=== PATIENT | male | born 1980 | race Caucasian/White ===

== ENCOUNTER 2018-05-20 14:57 | Emergency (ER) | payer MEDICAID ==
[~2018-05-20] VITALS: Ht 165.1 cm; Wt 66.0 kg
[2018-05-20] MEDS ORDERED: TETANUS, DIPHTHERIA, PERTUSSIS VAC/PF 0.5ML (>7YR OLD) IM ONE (17:00)
[2018-05-20] MEDS ORDERED: OXYCODONE HCL/ACETAMINOPHEN 5/325MG TABLET PO ONE (17:00)
[2018-05-20] MEDS ORDERED: LIDOCAINE HCL/PF 1% 10 MG/ML 5ML VIAL IJ ONE (17:00)
[2018-05-20] MEDS ORDERED: IBUPROFEN 800MG TABLET PO ONE (17:00)
[2018-05-20 18:05] VITALS: BP 125/80
== END 2018-05-20 19:06 | disposition home or self-care (01) ==
LOC: ER 15:10
DX: S81.811A Laceration without foreign body, right lower leg, initial encounter (principal); S40.022A Contusion of left upper arm, initial encounter; M25.512 Pain in left shoulder; M25.511 Pain in right shoulder; M25.561 Pain in right knee; F17.210 Nicotine dependence, cigarettes, uncomplicated; F12.10 Cannabis abuse, uncomplicated; F15.10 Other stimulant abuse, uncomplicated; Y08.02XA Assault by strike by baseball bat, initial encounter; Y93.89 Activity, other specified; Y92.89 Other specified places as the place of occurrence of the external cause
CPT/HCPCS: 12001; 73030; 73080; 73110; 73562; 73590; 90471; 90715; 99283; J3490

== ENCOUNTER 2018-11-01 23:43 | Inpatient (IN) | payer MEDICAID ==
[~2018-11-01] VITALS: Ht 165.1 cm; Wt 70.3 kg
[2018-11-02] MEDS ORDERED: SODIUM CHLORIDE 0.9% 1,000 ML IV ONE (00:28)
[2018-11-02 01:01] LABS: BASOPHILS % 0.5 % (0.0-2.0); EOSINOPHILS % 0.8 % (0.0-5.0); HEMATOCRIT. 43.2 % (42.0-52.0); HEMOGLOBIN. 14.9 g/dL (14.0-18.0); LYMPHOCYTES % 14.1 % (20.0-50.0); MEAN CORPUSCULAR HEMOGLOBIN 30.3 pg (28.0-32.0); MEAN CORPUSCULAR VOLUME 87.9 fL (80.0-94.0); MEAN PLATELET VOLUME 7.3 fl (7.4-10.4); MONOCYTES % 9.6 % (2.0-8.0); PLATELET 309 x1000/uL (130-400); RED BLOOD CELL COUNT 4.91 mill/uL (4.7-6.1); RED CELL DISTRIBUTION WIDTH 13.2 % (11.6-14.6)
[2018-11-02 01:07] LABS: CHLORIDE 99 mEq/L (98-107)
[2018-11-02 01:11] LABS: PROTHROMBIN TIME 9.9 sec (9.6-11.0)
[2018-11-02 01:13] LABS: ETHANOL BLOOD < 10 mg/dL
[2018-11-02 07:09] LABS: CLARITY URINE CLEAR (CLEAR); COLOR URINE YELLOW (YELLOW); KETONES URINE TRACE (NEGATIVE); LEUKOCYTE ESTERASE URINE NEGATIVE (NEGATIVE); NITRITE URINE NEGATIVE (NEGATIVE); OCCULT BLOOD URINE NEGATIVE (NEGATIVE); PH URINE 5.5 (4.5-8.0); PROTEIN URINE NEGATIVE (NEGATIVE); SPECIFIC GRAVITY URINE 1.024 (1.005-1.030)
[2018-11-02] MEDS ORDERED: ACETAMINOPHEN 325MG TABLET PO PRN (07:30)
[2018-11-02] MEDS ORDERED: DIPHENHYDRAMINE 50MG/ML VIAL IV PRN (07:30)
[2018-11-02] MEDS ORDERED: DOCUSATE SODIUM 100MG CAPSULE PO PRN (07:30)
[2018-11-02] MEDS ORDERED: GUAIFENESIN 200MG/10ML SUGAR FREE UDC PO PRN (07:30)
[2018-11-02] MEDS ORDERED: CLONIDINE 0.1MG TABLET PO PRN (07:30)
[2018-11-02] MEDS ORDERED: MAGNESIUM/ALUMINUM HYDROXIDE/SIMETHICONE 30ML UDC PO PRN (07:30)
[2018-11-02] MEDS ORDERED: IPRATROPIUM/ALBUTEROL 0.5-3(2.5)MG/3ML NEB INH PRN (07:30)
[2018-11-02] MEDS ORDERED: ONDANSETRON HCL 4MG/2ML INJ IV PRN (07:30)
[2018-11-02 07:48] LABS: *AMPHETAMINES SCREEN URINE PRESUMTIVE POSITIVE (NEGATIVE); *BARBITURATES SCREEN URINE NEGATIVE (NEGATIVE); *BENZODIAZEPINES SCREEN URINE NEGATIVE (NEGATIVE); *COCAINE SCREEN URINE NEGATIVE (NEGATIVE); METHADONE URINE SCREEN NEGATIVE (NEGATIVE)
[2018-11-02 07:49] LABS: CANNABINOID URINE SCREEN PRESUMTIVE POSITIVE (NEGATIVE); OPIATES URINE SCREEN NEGATIVE (NEGATIVE); PHENCYCLIDINE URINE SCREEN NEGATIVE (NEGATIVE)
[2018-11-02 07:50] LABS: PHOSPHORUS 5.5 mg/dL (2.5-4.9)
[2018-11-02 08:00] VITALS: BP 100/73
[2018-11-02 09:00] VITALS: BP 100/73
[2018-11-02] MEDS: ENOXAPARIN 40MG/0.4ML SYR SUBCUT SCH (09:00)
[2018-11-02] MEDS ORDERED: DEXTROSE 50% WATER 50ML SYRINGE IV PRN (14:00)
[2018-11-02] MEDS: SODIUM CHLORIDE 0.9% 1,000 ML IV SCH (14:30)
[2018-11-02 16:00] VITALS: BP 101/70
[2018-11-02] MEDS: INSULIN LISPRO 100 UNITS/ML SUBCUT SCH ×2 (17:20→21:00)
[2018-11-02] MEDS: BLOOD SUGAR DIAGNOSTIC STRIP TEST SCH ×2 (18:10→21:15)
[2018-11-02 20:00] VITALS: BP 99/64
[2018-11-03] VITALS: BP 101/73
[2018-11-03 01:11] LABS: CREATINE KINASE MB FRACTION 1.5 ng/mL (0.5-3.6)
[2018-11-03 04:00] VITALS: BP 97/60
[2018-11-03 06:05] LABS: CHLORIDE 104 mEq/L (98-107)
[2018-11-03 06:22] LABS: BASOPHILS % 0.7 % (0.0-2.0); HEMATOCRIT. 42.2 % (42.0-52.0); HEMOGLOBIN. 14.1 g/dL (14.0-18.0); LYMPHOCYTES % 29.6 % (20.0-50.0); MEAN CORPUSCULAR HEMOGLOBIN 30.1 pg (28.0-32.0); MEAN PLATELET VOLUME 7.7 fl (7.4-10.4); MONOCYTES % 9.1 % (2.0-8.0); NEUTROPHILS % 58.6 % (40.0-76.0); PLATELET 317 x1000/uL (130-400); RED BLOOD CELL COUNT 4.69 mill/uL (4.7-6.1); RED CELL DISTRIBUTION WIDTH 13.4 % (11.6-14.6)
[2018-11-03 06:24] LABS: LDL CHOLESTEROL 54 mg/dL (5-100); PHOSPHORUS 3.3 mg/dL (2.5-4.9)
[2018-11-03 06:26] LABS: HDL CHOLESTEROL 73 mg/dL (40-59)
[2018-11-03] MEDS: SODIUM CHLORIDE 0.9% 1,000 ML IV SCH (06:50)
[2018-11-03] MEDS: INSULIN LISPRO 100 UNITS/ML SUBCUT SCH ×2 (06:57→12:20)
[2018-11-03] MEDS: BLOOD SUGAR DIAGNOSTIC STRIP TEST SCH ×2 (06:57→12:20)
[2018-11-03 08:00] VITALS: BP 101/59
[2018-11-03] MEDS: ENOXAPARIN 40MG/0.4ML SYR SUBCUT SCH (08:58)
[2018-11-03 12:23] VITALS: BP 87/78
[2018-11-03 20:00] VITALS: BP 96/46
[2018-11-04] VITALS: BP 101/58
[2018-11-04 04:00] VITALS: BP 104/65
[2018-11-04 08:00] VITALS: BP 128/79
[2018-11-04] MEDS: ENOXAPARIN 40MG/0.4ML SYR SUBCUT SCH (09:17)
[2018-11-04] MEDS: NICOTINE 21MG PATCH TD SCH (14:42)
[2018-11-04 16:00] VITALS: BP 108/71
[2018-11-04 20:00] VITALS: BP 105/84
[2018-11-05] VITALS: BP 104/62
[2018-11-05 04:00] VITALS: BP 104/59
[2018-11-05 08:00] VITALS: BP 107/72
[2018-11-05] MEDS: NICOTINE 21MG PATCH TD SCH (09:00)
[2018-11-05] MEDS: ENOXAPARIN 40MG/0.4ML SYR SUBCUT SCH (09:00)
[2018-11-05 12:00] VITALS: BP 103/57
[2018-11-05 16:00] VITALS: BP 116/81
[2018-11-06] VITALS: BP 123/78
[2018-11-06 04:00] VITALS: BP 115/75
[2018-11-06 08:30] VITALS: BP 120/90
[2018-11-06] MEDS: NICOTINE 21MG PATCH TD SCH (09:07)
[2018-11-06] MEDS: ENOXAPARIN 40MG/0.4ML SYR SUBCUT SCH (09:08)
[2018-11-06 11:42] VITALS: BP 132/67
[2018-11-06 16:31] VITALS: BP 115/70
[2018-11-06 20:00] VITALS: BP 110/68
[2018-11-07] VITALS: BP 100/60
[2018-11-07 04:00] VITALS: BP 106/69
[2018-11-07 07:03] LABS: BASOPHILS % 1.3 % (0.0-2.0); EOSINOPHILS % 2.6 % (0.0-5.0); HEMATOCRIT. 46.9 % (42.0-52.0); HEMOGLOBIN. 16.2 g/dL (14.0-18.0); LYMPHOCYTES % 40.2 % (20.0-50.0); MEAN CORPUSCULAR HEMOGLOBIN 30.7 pg (28.0-32.0); MEAN CORPUSCULAR VOLUME 88.9 fL (80.0-94.0); MEAN PLATELET VOLUME 7.6 fl (7.4-10.4); MONOCYTES % 10.2 % (2.0-8.0); NEUTROPHILS % 45.7 % (40.0-76.0); PLATELET 370 x1000/uL (130-400); RED BLOOD CELL COUNT 5.27 mill/uL (4.7-6.1); RED CELL DISTRIBUTION WIDTH 13.3 % (11.6-14.6)
[2018-11-07 08:00] VITALS: BP 115/75
[2018-11-07 08:05] LABS: CHLORIDE 101 mEq/L (98-107)
[2018-11-07] MEDS: NICOTINE 21MG PATCH TD SCH (09:00)
[2018-11-07] MEDS: ENOXAPARIN 40MG/0.4ML SYR SUBCUT SCH (09:36)
[2018-11-07 11:42] VITALS: BP 132/83
[2018-11-07 16:01] VITALS: BP 113/67
[2018-11-07 20:00] VITALS: BP 177/108
[2018-11-08] VITALS: BP 99/63
[2018-11-08 04:00] VITALS: BP 95/62
[2018-11-08] MEDS: NICOTINE 21MG PATCH TD SCH (09:00)
[2018-11-08] MEDS: ENOXAPARIN 40MG/0.4ML SYR SUBCUT SCH (09:31)
[2018-11-08 12:00] VITALS: BP 105/63
[2018-11-08 20:00] VITALS: BP 101/50
[2018-11-09] VITALS: BP 109/51
[2018-11-09 04:00] VITALS: BP 100/58
[2018-11-09] MEDS: NICOTINE 21MG PATCH TD SCH (09:00)
[2018-11-09] MEDS: ENOXAPARIN 40MG/0.4ML SYR SUBCUT SCH (10:03)
[2018-11-09 12:00] VITALS: BP 118/67
[2018-11-09 16:00] VITALS: BP 111/77
[2018-11-09 20:00] VITALS: BP 125/57
[2018-11-09] MEDS: OLANZAPINE 5MG TABLET PO SCH (21:21)
[2018-11-10] VITALS: BP 121/62
[2018-11-10 05:33] VITALS: BP 118/61
[2018-11-10 08:00] VITALS: BP 96/60
[2018-11-10] MEDS: NICOTINE 21MG PATCH TD SCH (08:46)
[2018-11-10] MEDS: ENOXAPARIN 40MG/0.4ML SYR SUBCUT SCH (08:48)
[2018-11-10 12:00] VITALS: BP 89/50
[2018-11-10 16:00] VITALS: BP 131/80
[2018-11-10 20:00] VITALS: BP 121/78
[2018-11-10] MEDS: OLANZAPINE 5MG TABLET PO SCH (21:42)
[2018-11-11] VITALS: BP 127/80
[2018-11-11 04:00] VITALS: BP 114/77
[2018-11-11] MEDS: NICOTINE 21MG PATCH TD SCH (08:40)
[2018-11-11] MEDS: ENOXAPARIN 40MG/0.4ML SYR SUBCUT SCH (08:40)
[2018-11-11 11:55] VITALS: BP 99/64
[2018-11-11 16:00] VITALS: BP 97/55
[2018-11-11 20:00] VITALS: BP 137/51
[2018-11-11] MEDS: OLANZAPINE 5MG TABLET PO SCH (21:12)
[2018-11-12] VITALS: BP 131/55
[2018-11-12 04:00] VITALS: BP 119/84
[2018-11-12 08:00] VITALS: BP 123/89
[2018-11-12] MEDS: NICOTINE 21MG PATCH TD SCH (09:00)
[2018-11-12] MEDS: ENOXAPARIN 40MG/0.4ML SYR SUBCUT SCH (09:18)
[2018-11-12 12:00] VITALS: BP 120/77
[2018-11-12] MEDS: OLANZAPINE 5MG TABLET PO SCH (21:48)
[2018-11-13] VITALS: BP 88/56
[2018-11-13 04:00] VITALS: BP 111/52
[2018-11-13 08:00] VITALS: BP 92/59
[2018-11-13] MEDS: ENOXAPARIN 40MG/0.4ML SYR SUBCUT SCH (08:57)
[2018-11-13] MEDS: NICOTINE 21MG PATCH TD SCH (08:58)
[2018-11-13 12:00] VITALS: BP 99/68
[2018-11-13 16:01] VITALS: BP 101/55
[2018-11-13] MEDS: POLYETHYLENE GLYCOL 3350 (17GM) 1 DOSE PACK PO SCH (16:15)
[2018-11-13 20:00] VITALS: BP 120/66
[2018-11-13] MEDS: OLANZAPINE 5MG TABLET PO SCH (23:22)
[2018-11-14] VITALS: BP 118/61
[2018-11-14 08:00] VITALS: BP 88/56
[2018-11-14] MEDS: NICOTINE 21MG PATCH TD SCH ×3 (08:53→08:59)
[2018-11-14] MEDS: POLYETHYLENE GLYCOL 3350 (17GM) 1 DOSE PACK PO SCH (08:54)
[2018-11-14] MEDS: ENOXAPARIN 40MG/0.4ML SYR SUBCUT SCH (08:54)
[2018-11-14 10:53] VITALS: BP 88/56
[2018-11-14 12:00] VITALS: BP 108/66
== END 2018-11-14 13:00 | disposition home or self-care (01) | DRG 52 ==
LOC: ER 23:43 → 6EST 11-02 01:45 → ENRESERV 11-02 02:22
PROVIDERS: ADMIT Internal Medicine; ATTEND Internal Medicine
DX: G92 Toxic encephalopathy (principal); E83.39 Other disorders of phosphorus metabolism; R41.82 Altered mental status, unspecified; E83.41 Hypermagnesemia; D72.821 Monocytosis (symptomatic); M51.26 Other intervertebral disc displacement, lumbar region; F12.10 Cannabis abuse, uncomplicated; F15.10 Other stimulant abuse, uncomplicated; F17.200 Nicotine dependence, unspecified, uncomplicated
CPT/HCPCS: 36415; 71045; 72148; 80048; 80061; 80305; 80320; 82550; 82553; 82962; 83605; 83735; 84100; 84443; 84484; 93005; 93970; 96360; 97116; 97162; 97166; 99291; J1650; J7030; G0480

== ENCOUNTER 2021-07-27 10:49 | Emergency (ER) | payer MEDICAID ==
[~2021-07-27] VITALS: Ht 165.1 cm; Wt 66.0 kg
[2021-07-27 10:56] VITALS: BP 132/75
== END 2021-07-27 13:39 | disposition left against medical advice (07) ==
LOC: ER 10:49
DX: M79.18 Myalgia, other site (principal); F12.10 Cannabis abuse, uncomplicated; W17.89XA Other fall from one level to another, initial encounter; Y93.89 Activity, other specified; Y92.015 Private garage of single-family (private) house as the place of occurrence of the external cause
CPT/HCPCS: 99281

== ENCOUNTER 2021-09-05 12:16 | Emergency (ER) | payer MEDICAID, OTHER ==
[~2021-09-05] VITALS: Ht 165.1 cm; Wt 68.0 kg
[2021-09-05] MEDS ORDERED: LIDO700A15 TP (13:10)
[2021-09-05] MEDS ORDERED: BACL-141 MT (13:10)
[2021-09-05] MEDS ORDERED: HYDR-4001 MT (13:10)
[2021-09-05] MEDS ORDERED: IBUP-2029 MT (13:11)
[2021-09-05] MEDS ORDERED: LIDOCAINE 5% PATCH TOP SCH (13:15)
[2021-09-05] MEDS ORDERED: DEXAMETHASONE 10 MG/ML VIAL IM ONE (13:15)
[2021-09-05] MEDS ORDERED: HYDROCODONE/ACETAMINOPHEN 5/325MG TABLET PO ONE (13:15)
[2021-09-05] MEDS ORDERED: KETOROLAC 60MG/2ML VIAL IM ONE (13:15)
[2021-09-05 13:29] VITALS: BP 112/78
== END 2021-09-05 13:40 | disposition home or self-care (01) ==
LOC: ER 12:16
DX: M54.9 Dorsalgia, unspecified (principal); M54.31 Sciatica, right side; G89.29 Other chronic pain
CPT/HCPCS: 96372; 99284; J1100; J1885

== ENCOUNTER 2021-11-29 08:34 | Emergency (ER) | payer OTHER ==
[~2021-11-29] VITALS: Ht 165.1 cm; Wt 68.0 kg
[~2021-11-29 08:34] MED LIST: BACL-141 MT; HYDR-4001 MT; IBUP-2029 MT; LIDO700A15 TP
[2021-11-29 08:47] VITALS: BP 127/77
[2021-11-29] MEDS ORDERED: CEPH500C2 MT (09:36)
[2021-11-29] MEDS ORDERED: TOLN108P2 TP (09:36)
== END 2021-11-29 09:52 | disposition home or self-care (01) ==
LOC: ER 08:42
DX: B35.3 Tinea pedis (principal); L03.116 Cellulitis of left lower limb; F12.10 Cannabis abuse, uncomplicated; Z79.899 Other long term (current) drug therapy
CPT/HCPCS: 99283

== ENCOUNTER 2022-05-09 09:31 | Emergency (ER) | payer OTHER ==
[~2022-05-09] VITALS: Ht 172.7 cm; Wt 67.0 kg
[~2022-05-09 09:31] MED LIST changes: +CEPH500C2 MT; +TOLN108P2 TP
[2022-05-09 09:39] VITALS: BP 131/87
== END 2022-05-09 14:00 | disposition left against medical advice (07) ==
LOC: ER 09:53
DX: Z53.21 Procedure and treatment not carried out due to patient leaving prior to being seen by health care provider (principal)

== ENCOUNTER 2022-05-12 13:49 | Emergency (ER) | payer OTHER ==
[~2022-05-12] VITALS: Ht 165.1 cm; Wt 68.5 kg
[2022-05-12 13:57] VITALS: BP 143/83
[2022-05-12] MEDS ORDERED: KETOROLAC 60MG/2ML VIAL IM STA (15:01)
[2022-05-12] MEDS ORDERED: MORPHINE SULFATE 10 MG/ML CPJ IM NR (17:15)
[2022-05-12] MEDS ORDERED: GABA-532 MT (17:46)
[2022-05-12] MEDS ORDERED: NAPR-681 PO (17:46)
[2022-05-12] MEDS ORDERED: KETOROLAC 60MG/2ML VIAL IM NR (18:30)
== END 2022-05-12 18:41 | disposition home or self-care (01) ==
LOC: ER 13:49
DX: M54.50 Low back pain, unspecified (principal); S33.39XA Dislocation of other parts of lumbar spine and pelvis, initial encounter; V03.10XA Pedestrian on foot injured in collision with car, pick-up truck or van in traffic accident, initial encounter; Y93.9 Activity, unspecified; Y92.9 Unspecified place or not applicable
CPT/HCPCS: 72110; 99283; J1885

== ENCOUNTER 2022-12-22 21:33 | Emergency (ER) | payer OTHER ==
[~2022-12-22] VITALS: Ht 172.7 cm; Wt 63.0 kg
[~2022-12-22 21:33] MED LIST changes: +GABA-532 MT; +NAPR-681 PO
[2022-12-22 21:43] VITALS: BP 110/70; PULSE 80; RESP 16; TEMP 97.9; O2SAT 99
[2022-12-22] MEDS ORDERED: SULF1TAB48 MT (23:37)
== END 2022-12-23 00:27 | disposition home or self-care (01) ==
LOC: ER 21:33
DX: L02.512 Cutaneous abscess of left hand (principal); F12.10 Cannabis abuse, uncomplicated
CPT/HCPCS: 99283